=== PATIENT | male | born 1980 | race Caucasian/White ===

== ENCOUNTER → 2022-06-28 | Outpatient (CLI) | payer OTHER ==
[~2022-06-28] MED LIST: AMOXICILLIN500 MG PO; CLEOCIN150 MG PO; CLINDAMYCIN HC300 MG PO; CLINDAMYCIN HY300 MG PO; MOTRIN600 MG PO; MOTRIN800 MG PO; NKHM
== END | disposition home or self-care (01) ==
LOC: ORTHO 02:36
PROVIDERS: ATTEND Orthopaedic Surgery
DX: M79.641 Pain in right hand (principal); M79.642 Pain in left hand